=== PATIENT | male | born 1945 | race Caucasian/White ===

== ENCOUNTER 2017-12-23 15:53 | Inpatient (IN) | payer MEDICARE, BC ==
[2017-12-23] MEDS ORDERED: Benzocaine 20% Spray 60 ML CAN ONE (16:00)
[2017-12-23] MEDS ORDERED: Lidocaine Viscous Sol 2% 15 ml UD Cup ONE (16:00)
[2017-12-23] MEDS ORDERED: Sodium Chloride 0.9% 1,000 ML IV SCH (18:45)
--- NOTE | 2017-12-23 19:09 | CON ---
DATE OF CONSULTATION: 12/23/2017 REQUESTING PHYSICIAN: Arthur Ken M.D. HISTORY OF PRESENT ILLNESS: This is a 72-year-old man who presented to [facility] in [facility] following insidious onset multiple episodes of nausea and bilious emesis. This was preceded by an epigastric abdominal pain of 4 days' duration. The patient describes the pain as "reflux." He a dmits to low-grade fever, temperature of 100. He also reported some periumbilical abdominal pain of 2 days' duration, which is now resolved. The patient denies any unexplained weight loss. He denies any early satiety. He denies any fatigue. The patient denies any night sweats. PAST MEDICAL HISTORY: Pertinent for hyperlipidemia. SURGICAL HISTORY: He denies any previous surgeries. SOCIAL HISTORY: The patient is and lives at home with his . He denies any cigarette smo bossman or illicit drug abuse, but admits to occasional intake of ethanol in moderate amounts. 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 PREHOSPITALIZATION MEDICATIONS: He takes some statin, does not recall the specifics. He also takes multiple vitamins. ALLERGIES: The patient denies any known drug allergies. FAMILY HISTORY: Noncontributory for this patient's age. REVIEW OF SYSTEMS: A 10-point review of system is essentially unremarkable except as stated in the p ast medical history and chief complaint. PHYSICAL EXAMINATION: GENERAL: This reveals a 72-year-old normally developed man who is otherwise coherent and interactive and appears stated age. The patient is alert and oriented x3, appears to be in no acute distress at the time of my evaluation. VITAL SIGNS: Include blood pressure 150/86, pulse 92, respiratory rate 19, temperature 99 degrees Fa hrenheit, oxygen saturation 93% on room air. HEENT: Reveals normocephalic and atraumatic. Pupils are equal, round and reactive to light and acco mmodation. HEART: Reveals regular rate and rhythm. No murmurs or gallops auscultated. LUNGS: Clear to auscultation bilaterally. Breathing regular and unlabored. ABDOMEN: Soft and nondistended. He has mild epigastric abdominal pain to palpation. Liver and sple en nonpalpable below costal margins. I examine his umbilicus. There is no palpatory examination to suggest any residual umbilical hernia; however, there is a small umbilical defect. GENITOURINARY: Reveals bilateral descended testicles and normal male genitalia. He had a large righ t scrotal mass. This was easily reducible, but readily reappears within the scrotal sac. EXTREMITIES: Reveal 2+ radial and pedal pulses bilaterally. No ankle edema is present. NEUROLOGIC: Reveals no focal deficits present. LABORATORY DATA: Pertinent laboratory findings today include CBC with 22,400 white blood cells, hemo globin and hematocrit 15.8 and 44.5 respectively. Platelet count is 263,000. Metabolic profile, sod ium 140, potassium 3.8, chloride is 98, bicarbonate 29, BUN 21, creatinine is 1.02, glucose 164. AST and ALT normal at 23 and 21 respectively. T bili is 1.9. IMAGING: I personally reviewed the accompanying CT scan of the abdomen and pelvis, which is remarkab le for multiple distended loops of small bowel. There is also an umbilical defect, which contained s mall bowel with no significant fat stranding surrounding this. There is a large right inguinal herni a, which contains bowel and fat. Of significant note is a large pancreatic head mass. IMPRESSION: 1. Pancreatic head tumor. 2. Acute partial small-bowel obstruction. 3. Now resolved umbilical hernia. 4. Large non-incarcerated right inguinal hernia. PLAN: 1. Bowel rest with nasogastric tube decompression. 2. IV hydration. 3. We will proceed with workup of the pancreatic head mass to provide biopsy. 4. There are no acute surgical indications for the umbilical and right inguinal hernia at this time. Surgical repair of the above hernias will be deferred to post-biopsy of the pancreatic head mass sh ould there be a surgical indication for the pancreatic tumor. Umbilical and right inguinal hernia co uld be repaired on that setting. Above findings and plan have been discussed with the patient who indicates understanding of the infor mation given. I answered all his questions. Thank you again, Dr. Ken, for allowing me the opportunity to participate in the care of this patient .
[2017-12-23 19:13] VITALS: BMI 23.8
--- NOTE | 2017-12-24 02:40 | HP ---
CHIEF COMPLAINT: Transfer from outside facility. HISTORY OF PRESENT ILLNESS: This patient is a 72-year-old male who initially presented to the [facility] in [place]. The patient reports that he started having some abdominal discomfort starting on Thursday, started feeling worse throughout the day and by the evening, he was feeling like he had severe gas cramping. States that he could not sleep that night. He did have some vomiting an d felt like he was just having some severe reflux. He took Gas-X that night and took some again the next morning and started to feel a little bit better, although he was continuing to have more reflux type symptoms and very loud bowel sounds. He subsequently developed the hiccups and his made mariela aguilera come to the hospital. He does report that he had no chills but did have some associated low-grade temperatures. He has not had a bowel movement since Thursday either. They indicated the patient was found to have an incarcerated umbilical hernia on CT scan of the abdom en. The patient also had a pancreatic mass identified on the CT scan at the outside facility that is 8-9 cm heterogeneous low density partially cystic mass involving the pancreatic neck and head. The patient was subsequently transferred to the emergency department here. In our emergency department, the exam indicated that the patient's umbilical hernia had likely spontaneously reduced. He had not had an NG tube placed at the other facility that was done here and he had fairly rapid decompression. Dr. Lerner has seen the patient as well and then identified the right inguinal hernia. I did not be lieve either of these necessitated or urgent surgery. Of note, the patient did receive a dose of Mef oxin at the other facility. REVIEW OF SYSTEMS: Ten-system review only notable for occasional cramping in his legs and fingers. PAST MEDICAL HISTORY: Notable for hyperlipidemia. He also reports that he sees Dr. Crawford for wha t sounds like peripheral vascular disease and he has seen Dr. Alejo for bronchitis. PAST SURGICAL HISTORY: Blepharoplasty. FAMILY HISTORY: Mother had kidney disease. Father had diabetes. SOCIAL HISTORY: Patient does not use tobacco. He has an occasional beer. He is and his wif e would be a surrogate decision maker. CODE STATUS: He is a FULL CODE. PHYSICAL EXAMINATION: VITAL SIGNS: Temperature 98.6, pulse 74, respirations 15, O2 sat 93% on room air, BP is 133/75. GENERAL APPEARANCE: Age appropriate male with an NG tube in place. He is awake, alert, oriented, ex tremely pleasant and cooperative. HEENT: PERRL. No OP lesions. NECK: Supple and symmetric. HEART: Regular with frequent bigeminy and PVCs. No murmurs. LUNGS: Clear to auscultation bilaterally. ABDOMEN: Presently is soft, nontender, nondistended with positive bowel sounds. No masses or organo megaly. There is an umbilical hernia pouch, which is nicked at the moment with no tenderness. He al so has a large right inguinal hernia, which is soft, nontender and reproducible. SKIN: Lower extremities are warm and dry without edema. LABORATORY DATA: From the outside facility, INR is 1.1. BNP 42, glucose 164, BUN 21, creatinine 1.0 2. Sodium 140, potassium 3.8, chloride 98, CO2 of 29, calcium 10.4. AST 23, ALT is 21, albumin 4.6, lipase 15. UA negative. White count 22.4, hemoglobin 15.8, platelets 262. CT abdomen shows small- bowel obstruction at the level of the umbilical hernia with a large 8.5 x 9 cm pancreatic lesion, whi ch is consistent with a complex cystic neoplasm. ASSESSMENT AND PLAN: 1. Small-bowel obstruction secondary to incarcerated umbilical hernia that is now reduced. Patient had an NG tube placed in the emergency department, he decompressed fairly quickly and he is currently doing quite well. Anticipate being able to discontinue the NG tube in the morning and start allowin g the patient to take some p.o. 2. Pancreatic mass. Patient will need endoscopic ultrasound-guided biopsy, which will need to be do ne at a different facility. Once he is stable from the bowel obstruction, he can likely be discharge d to have outpatient followup at [facility] in [place] or in [place]. 3. History of hyperlipidemia, chronic. Patient can resume his medications once he is stable and rochelle ing p.o. 4. Leukocytosis. Patient had initial leukocytosis, but he does not appear to have any evidence of i schemic bowel at this point, nor does he appear to have any other signs of specific infections. Ther efore, we will not continue any antibiotics at this time. He then had also bigeminy with frequent PV Cs. We will add telemetry to the patient's orders.
[2017-12-24 05:10] LABS: Anion Gap 13 mmol/L (10-20); BUN (Urea Nitrogen) 21 mg/dL (8.4-25.7); Calc. Creatinine Clearance 86 mL/min (70-130); Carbon Dioxide 25 mmol/L (23-31); Chloride 105 mmol/L (98-107); Estimated GFR-MDRD 82; Glucose 104 mg/dL (83-110); Potassium 3.4 mmol/L (3.5-5.1); Sodium 140 mmol/L (136-145)
[2017-12-24 05:31] LABS: #Eosinphils 0.1 thou/uL (0.0-0.7); #Lymphocytes 1.7 thou/uL (1.20-3.40); #Monocytes 1.6 thou/uL (0.11-0.59); #Neutrophils 8.9 thou/uL (1.40-6.50); %Basophils 0.3 % (0.0-1.0); %Eosinophils 0.7 % (0.0-10.0); %Lymphocytes 13.8 % (21.0-51.0); %Monocytes 13.3 % (0.0-10.0); %Neutrophils 71.9 % (42.0-75.0); Hemoglobin 13.9 g/dL (14.0-18.0); Mean Corpuscular HGB CONC 35.8 g/dL (32.0-36.0); Mean Corpuscular Hemoglobin 32.6 pg (27.0-31.0); Mean Platelet Volume 9.8 fL (7.4-10.4); Platelet Count 179 thou/uL (130-400); Red Blood Cell (RBC) Count 4.28 mill/uL (4.70-6.10); White Blood Cell (WBC) Count 12.3 thou/uL (4.8-10.8)
[2017-12-24] MEDS ORDERED: Acetaminophen 325 MG TAB PO PRN (12:14)
[2017-12-24] MEDS ORDERED: HYDROcodone/Acetaminophen 5/325 mg Tablet PO PRN (12:14)
[2017-12-24] MEDS ORDERED: hydrALAZINE 20 MG/ML VIAL SLOW IVP PRN (12:14)
--- NOTE | 2017-12-24 12:33 | PDOC.PN ---
- Subjective Encounter Start Date: 12/24/17 Encounter Start Time: 12:29 Mr. Salgado was seen today in follow-up of partial bowel obstruction. He is feeling better. He has been able to tolerate a clear liquid diet so far. - Objective Resuscitation Status: Resuscitation Status FULL:Full Resuscitation MAR Reviewed: Yes Vital Signs & Weight: Vital Signs (12 hours) Temp Pulse Resp BP BP Pulse Ox 12/24/17 11:34 98.8 F 91 15 123/71 93 L 12/24/17 10:30 98.5 F 95 12 12/24/17 08:20 98.5 F 95 12 124/68 90 L 12/24/17 04:32 98.2 F 66 16 109/57 L 92 L Weight Weight 183 lb 8 oz I&O: 12/23/17 12/24/17 12/25/17 06:59 06:59 06:59 Intake Total 830 134 Output Total 1525 Balance -695 134 Result Diagrams: 12/24/17 04:25 12/24/17 04:25 Phys Exam - Physical Examination HEENT: PERRLA Respiratory: no wheezing, no rales, no rhonchi, clear to auscultation bilateral Cardiovascular: RRR, no significant murmur, no rub Gastrointestinal: soft, non-tender, no distention, positive bowel sounds Musculoskeletal: no edema Dx/Plan (1) Small bowel obstruction Code(s): K56.609 - UNSP INTESTNL OBST, UNSP TO PARTIAL VERSUS COMPLETE OBST Status: Acute (2) Pancreatic mass Status: Acute - Plan * Discussed with Dr. Lerner, the obstruction appears to have cleared * He will need Pancreatic Biopsy at another facility * Stable for discharge if he can tolerate full liquids.
--- NOTE | 2017-12-24 12:43 | PRG ---
DATE OF SERVICE: 12/24/2017 SUBJECTIVE: Mr. Salgado is a 72-year-old man who was admitted yesterday with abdominal pain, nausea or vomiting. He was found with large pancreatic mass. Incarcerated umbilical hernia has since resolve d. He has a known incarcerated right inguinal hernia which requires no operative intervention at the moment. A nasogastric tube was placed yesterday and this morning, the patient has no abdominal pain . Nasogastric tube which previously put out over a liter of bilious effluent has over the last 12 ho urs returns scant nonbilious output. PHYSICAL EXAMINATION: VITAL SIGNS: Today includes blood pressure 123/71, pulse is 91, respirations 15, temperature is 98.8 degrees Fahrenheit and oxygen saturation is 92% on room air. ABDOMEN: Soft, nontender, nondistended. Nasogastric tube was removed. The patient will be started on clear liquid diet. If he tolerates nevaeh ar liquid diet, he may be discharged home from surgery standpoint. The patient is to follow up with Interventional Gastroenterology for endoscopic biopsy of the pancreatic head mass. He will ultimatel y require consultation with the Hepatobiliary Surgery and Oncology. Such services will be either at [facility] in [place] or in [place].
[2017-12-24 15:43] VITALS: BP 110/67; TEMP 98.3
[2017-12-24] MEDS ORDERED: Famotidine/PF 20 mg/2ml Vial SLOW IVP SCH (21:00)
--- NOTE | 2017-12-25 00:54 | DIS ---
DATE OF ADMISSION: 12/24/2017 DATE OF DISCHARGE: 12/24/2017 PRIMARY CARE PHYSICIAN: At another facility. DISCHARGE DISPOSITION: Home. DISCHARGE DIAGNOSES: 1. Small-bowel obstruction. 2. Pancreatic mass. 3. Hyperlipidemia. DISCHARGE MEDICATIONS: Include multivitamin once daily, omega 3 fatty acids once a day, MiraLax 17 g soledad daily, potassium 99 mg daily, Crestor 10 mg daily, zinc, vitamin and E and C daily. CODE STATUS: Full code. ALLERGIES: No known drug allergies. HOSPITAL ILLNESS: Mr. Salgado is a pleasant 72-year-old gentleman who presented to the emergency room at [facility] after he began having abdominal discomfort. He was evaluated in the ER and found to have an incarcerated umbilical hernia by CT scan. It was also noted that he had a panc reatic mass identified in the head of the pancreas. He was therefore transferred to our facility for further evaluation and treatment. By the time he reached our facility, his symptoms actually began to resolve. He was evaluated by General Surgery and placed on bowel rest with an NG tube. The morning, his symptoms actually improved and the NG tube could be removed. He was able to tolera te a clear liquid diet, which was then further advanced to a full liquid. With regard to the pancrea tic mass; however, he would need to be followed up in an outside facility. Dr. Lerner provided inform ation for followup in [place] with Dr. Craig. The patient will therefore be discharged home as th e incarcerated hernia creating an obstruction had resolved and he was stable for discharge.
[2017-12-25] MEDS ORDERED: Enoxaparin Sodium 40 MG/0.4 ML SYRINGE SC SCH (09:00)
[2017-12-25] MEDS ORDERED: Rosuvastatin 10 MG TAB PO SCH (09:00)
== END 2017-12-24 19:14 | disposition home or self-care (01) | DRG 395 ==
LOC: ERS 15:53 → 2SW 17:25 → OBSVTOIN 12-24 12:14
PROVIDERS: ADMIT Internal Medicine; ATTEND Internal Medicine
DX: K42.0 Umbilical hernia with obstruction, without gangrene (principal); E78.5 Hyperlipidemia, unspecified; K86.89 Other specified diseases of pancreas
CPT/HCPCS: 36415; 80048; 85025; 86301

== ENCOUNTER 2018-02-09 12:44 | Outpatient (CLI) | payer MEDICARE, BC ==
--- NOTE | 2018-02-09 13:35 | RAD ---
CHEST TWO VIEWS: History: Dyspnea. Comparison: 2014 FINDINGS: There are some chronic interstitial markings in the lung bases. No pneumothorax. No effusion. No acut e osseous abnormality. IMPRESSION: No acute intrathoracic abnormality. POS: [facility]
== END 2018-02-09 12:45 | disposition home or self-care (01) ==
LOC: RAD 12:44
PROVIDERS: ATTEND Internal Medicine Pulmonary Disease
DX: R06.00 Dyspnea, unspecified (principal)
CPT/HCPCS: 71046

== ENCOUNTER 2018-05-15 16:57 | Emergency (ER) | payer MEDICARE, BC ==
[~2018-05-15 16:57] MED LIST: ISOVUE-370 76%-LOCM 1 ML ONE; Iopamidol 370 76% 50 ML VIAL FS ONE
[2018-05-15 18:22] LABS: #Lymphocytes 1.4 thou/uL (1.20-3.40); #Monocytes 1.4 thou/uL (0.11-0.59); #Neutrophils 11.7 thou/uL (1.40-6.50); %Basophils 0.1 % (0.0-1.0); %Eosinophils 0.2 % (0.0-10.0); %Lymphocytes 9.8 % (21.0-51.0); %Monocytes 9.9 % (0.0-10.0); %Neutrophils 80.1 % (42.0-75.0); Hemoglobin 14.3 g/dL (14.0-18.0); Mean Corpuscular HGB CONC 34.9 g/dL (32.0-36.0); Mean Corpuscular Hemoglobin 31.6 pg (27.0-31.0); Mean Corpuscular Volume 90.4 fL (78.0-98.0); Mean Platelet Volume 10.1 fL (7.4-10.4); Platelet Count 186 thou/uL (130-400); RBC Distribution Width 12.7 % (11.5-14.5); Red Blood Cell (RBC) Count 4.53 mill/uL (4.70-6.10); White Blood Cell (WBC) Count 14.6 thou/uL (4.8-10.8)
[2018-05-15 18:41] LABS: ALT (SGPT) 21 U/L (8-55); AST (SGOT) 24 U/L (5-34); Albumin 3.9 g/dL (3.4-4.8); Alkaline Phosphatase 76 U/L (40-150); Anion Gap 18 mmol/L (10-20); BUN (Urea Nitrogen) 20 mg/dL (8.4-25.7); Bilirubin, Total 1.2 mg/dL (0.2-1.2); Calc. Creatinine Clearance 0 mL/min (70-130); Calcium 9.1 mg/dL (7.8-10.44); Carbon Dioxide 21 mmol/L (23-31); Chloride 104 mmol/L (98-107); Estimated GFR-MDRD 82; Globulin 3.1 g/dL (2.4-3.5); Glucose 116 mg/dL (83-110); Lipase 14 U/L (8-78); Potassium 3.9 mmol/L (3.5-5.1); Sodium 139 mmol/L (136-145)
[2018-05-15 18:45] LABS: Bilirubin Small (Negative); Blood, Urine Negative (Negative); Clarity CLEAR (Clear); Glucose, Urine (Dipstick) Negative (Negative); Leukocyte Negative (Negative); Nitrite Negative (Negative); Protein, Urine (Dipstick) Trace mg/dL (Neg-Trace); Specific Gravity, Urine 1.025 (1.002-1.036)
--- NOTE | 2018-05-15 20:13 | CT ---
CT ABDOMEN AND PELVIS WITH IV CONTRAST 05/15/18 HISTORY: Abdominal pain with onset of symptoms last night. Associated fever and vomiting. History of mass on p ancreas. COMPARISON: None available. FINDINGS: There are linear densities seen at each lung base which may be related to atelectasis and/or mild sca rring. There is a small hiatal hernia present. There is a heterogeneous mass seen associated with the pancreas centered in the region of the head/ne ck, and proximal body of the pancreas. This large heterogeneous mass measures 6.9 cm craniocaudal x 1 0.6 cm transverse x 7.7 cm AP. This mass does result in mass effect on the portal vein as well as spl enic vein, but the portal and splenic veins are patent. The liver, spleen, bilateral adrenal glands, kidneys, and urinary bladder demonstrate a normal CT kiki earance. There is a right inguinal hernia which contains multiple loops of small bowel which extend into the s crotum. There is no evidence of a bowel obstruction. The appendix is visualized and normal in caliber . There are a few scattered colonic diverticula noted. There is no free fluid, fluid collection, or lymphadenopathy seen in the abdomen or pelvis. A very small fat containing umbilical hernia is identified. Multilevel degenerative changes are seen in the lumbar and lower thoracic spine. Vascular calcifications present in the abdominal aorta involving the iliac arteries. IMPRESSION: 1. Large heterogeneous pancreatic mass. Neoplastic process should be excluded. Direct comparison with prior studies would be helpful given history of a reported benign mass involving the pancreas. 2. Right inguinal hernia containing multiple loops of small bowel which extend into the scrotum. There is no evidence of a bowel obstruction. 3. No CT evidence of appendicitis. 4. Small hiatal hernia. 5. Colonic diverticulosis. POS: [facility]
== END 2018-05-15 20:50 | disposition home or self-care (01) ==
LOC: ERS 16:57
DX: R10.9 Unspecified abdominal pain (principal); E78.5 Hyperlipidemia, unspecified; Z79.899 Other long term (current) drug therapy
CPT/HCPCS: 74177; 80053; 81003; 83690; 85025; 93005

== ENCOUNTER 2019-02-07 12:55 | Outpatient (CLI) | payer MEDICARE, BC ==
--- NOTE | 2019-02-07 18:24 | RAD ---
2 VIEWS CHEST: Date: 02/07/19 COMPARISON: 02/09/18. HISTORY: Dyspnea. FINDINGS: No pneumothorax or pleural fluid. No focal consolidation or alveolar edema. Heart and mediastinal con tours are stable. Stable pulmonary hyperinflation and mild increased linear interstitial density. IMPRESSION: Chronic findings as detailed above. No acute findings. POS: [facility]
== END 2019-02-07 12:56 | disposition home or self-care (01) ==
LOC: RAD 12:55
PROVIDERS: ATTEND Internal Medicine Pulmonary Disease
DX: R06.00 Dyspnea, unspecified (principal)
CPT/HCPCS: 71046